=== PATIENT | male | born 1955 | race Caucasian/White ===

== ENCOUNTER 2017-07-31 12:37 | Inpatient (IN) | payer BC ==
[~2017-07-31] VITALS: Ht 180.3 cm; Wt 109.0 kg
[2017-07-31] MEDS ORDERED: LORazepam 2 mg/ml vial IV ONE (12:45)
[2017-07-31] MEDS ORDERED: ringers solution, lactated 1000ml IV soln IV ONE (12:45)
[2017-07-31 13:08] LABS: BASOPHILS % (AUTO) 0.2 % (0-1); EOSINOPHILS # (AUTO) 0.1 X10'3 (0-0.9); EOSINOPHILS % (AUTO) 1.3 % (0-6); HEMATOCRIT 43.3 % (42.0-52.0); LYMPHOCYTES # (AUTO) 0.7 X10'3 (1.1-4.8); LYMPHOCYTES % (AUTO) 13.8 % (21-51); MEAN CORPUSCULAR HEMOGLOBIN 33.9 PG (27.0-31.0); MEAN CORPUSCULAR HGB CONC 34.7 % (33.0-36.5); MEAN CORPUSCULAR VOLUME 97.7 FL (78-98); MEAN PLATELET VOLUME 7.3 FL (7.4-10.4); MONOCYTES # (AUTO) 0.7 X10'3 (0-0.9); MONOCYTES % (AUTO) 14.1 % (2-12); NEUTROPHILS # (AUTO) 3.3 X10'3 (1.8-7.7); NEUTROPHILS % (AUTO) 70.6 % (42-75); PLATELET COUNT 174 X10'3 (140-440); RED BLOOD COUNT 4.43 X10'6 (4.70-6.10); RED CELL DISTRIBUTION WIDTH 14.2 % (11.5-14.5); WHITE BLOOD COUNT 4.7 X10'3 (4.5-11.0)
[2017-07-31 13:21] LABS: ALANINE AMINOTRANSFERASE 56 U/L (12-78); ALBUMIN 3.4 G/DL (3.4-5.0); ALBUMIN/GLOBULIN RATIO 1.1 (1.1-1.5); ALKALINE PHOSPHATASE 82 IU/L (46-116); ANION GAP 17 (8-16); ASPARTATE AMINO TRANSFERASE 70 U/L (10-37); BILIRUBIN,TOTAL 0.9 MG/DL (0.1-1.0); BLOOD UREA NITROGEN 12 MG/DL (7-18); CALCIUM 8.6 MG/DL (8.5-10.1); CHLORIDE 103 MMOL/L (99-107); ETHANOL < 0.010 GM/DL (0.0-0.010); GLUCOSE 151 MG/DL (70-104); SODIUM 141 MMOL/L (135-145); TOTAL PROTEIN 6.6 G/DL (6.4-8.2); eGFR 62 ML/MIN
[2017-07-31 13:24] LABS: POTASSIUM 3.5 MMOL/L (3.5-5.1)
[2017-07-31] MEDS ORDERED: PRAV80TA PO (13:46)
[2017-07-31] MEDS ORDERED: ASPI-611 PO (13:46)
[2017-07-31] MEDS ORDERED: LISI40TA4 PO (13:48)
[2017-07-31] MEDS ORDERED: BUPR300T54 PO (13:48)
[2017-07-31 14:26] LABS: CLARITY,URINE CLEAR (Clear); COLOR,URINE YELLOW (Yellow); GLUCOSE, URINE NEGATIVE (Neg); KETONES,URINE TRACE mg/dl (Neg); LEUKOCYTE ESTERASE ,URINE NEGATIVE (Neg); NITRITES, URINE NEGATIVE (Neg); OCCULT BLOOD,URINE TRACE-INTACT (Neg); PH,URINE 7.5 (4.8-8.0); PROTEIN,URINE TRACE mg/dl (Neg); UA COLLECTION TYPE CLN CATCH MIDSTREAM; UROBILINOGEN,URINE 0.2 E.U/dL (0.2-1.0)
[2017-07-31 14:35] LABS: URINE AMPHETAMINE SCREEN NEGATIVE (Neg); URINE BARBITUATE SCREEN NEGATIVE (Neg); URINE BENZODIAZEPINES SCREEN NEGATIVE (Neg); URINE CANNABINOID SCREEN NEGATIVE (Neg); URINE COCAINE SCREEN NEGATIVE (Neg); URINE METHADONE SCREEN NEGATIVE (Neg); URINE OPIATE SCREEN NEGATIVE (Neg); URINE PHENCYCLIDINE SCREEN NEGATIVE (Neg)
[2017-07-31 14:50] LABS: BACTERIA,URINE NONE SEEN /HPF (Neg); RBC,URINE 0-2 /HPF (0-2); SQUAMOUS EPITHELIAL CELL,UR FEW /LPF (FEW); WBC,URINE 0-4 /HPF (0-4)
[2017-07-31 14:51] LABS: HYALINE CASTS 0-3 /LPF (NEGATIVE)
[2017-07-31] MEDS ORDERED: morphine 4 MG/ML inj SYRINge IV PRN ×2 (15:30)
[2017-07-31] MEDS ORDERED: dextrose 50%-water 50ml dispensing syringe IV PRN (15:30)
[2017-07-31] MEDS ORDERED: ondansetron/PF 4mg/2ml inj IV PRN (15:30)
[2017-07-31] MEDS ORDERED: potassium Cl 20 mEq SR tablet PO PRN ×2 (15:30)
[2017-07-31] MEDS ORDERED: acetaminophen 325mg tablet PO PRN ×2 (15:30)
[2017-07-31] MEDS ORDERED: magnesium 4gm in 100ml NS 100 ML IV PRN (15:30)
[2017-07-31] MEDS ORDERED: haloperidol lactate 5mg/ml inj IM PRN (15:30)
[2017-07-31] MEDS ORDERED: haloperidol 5mg tablet PO PRN (15:30)
[2017-07-31] MEDS ORDERED: HYDROcodone/acetaminophen 5mg/325mg tablet PO PRN (15:30)
[2017-07-31] MEDS ORDERED: magnesium hydroxide 30ml (MOM) UD suspension PO PRN (15:30)
[2017-07-31] MEDS ORDERED: HYDROcodone/acetaminophen 10/325mg tab PO PRN (15:30)
[2017-07-31] MEDS ORDERED: mag hydrox/Alum hydrox/simeth 30ml oral suspension PO PRN (15:30)
[2017-07-31] MEDS ORDERED: potassium Cl 40MEQ/NS 500ml 500 ML IV PRN ×2 (15:30)
[2017-07-31] MEDS ORDERED: magnesium Cl slow-release 64mg tablet PO PRN (15:30)
[2017-07-31] MEDS ORDERED: magnesium/D5W IVPB 50 ML IV PRN (15:30)
[2017-07-31] MEDS ORDERED: nicotine 14mg patch - 24hr TD SCH (15:30)
[2017-07-31] MEDS ORDERED: K and/or MAG REPLACEMENT MC SCH (15:30)
[2017-07-31] MEDS ORDERED: diphenhydrAMINE 50 mg/ml inj IV PRN (15:30)
[2017-07-31] MEDS ORDERED: thiamine 100mg/ml 2ml inj. IV ONE (15:30)
[2017-07-31] MEDS ORDERED: hydrALAZINE 20mg/ml inj. IV PRN (15:45)
[2017-07-31] MEDS ORDERED: pantoprazole 40 MG vial IV SCH (15:45)
[2017-07-31] MEDS ORDERED: cloNIDine 0.1 mg tablet PO ONE (15:45)
[2017-07-31] MEDS: dextrose 5%-normal saline 1,000 ML IV SCH ×2 (16:03→21:00)
[2017-07-31] MEDS: LORazepam 2 mg/ml vial IV PRN (16:11)
[2017-07-31 17:40] VITALS: BP 136/85
[2017-07-31] MEDS ORDERED: OMEP40CA37 PO (19:35)
[2017-07-31] MEDS ORDERED: temazepam 15mg capsule PO PRN (21:00)
[2017-08-01] VITALS: BP 136/75
[2017-08-01] MEDS: LORazepam 2 mg/ml vial IV PRN (00:56)
[2017-08-01] MEDS: dextrose 5%-normal saline 1,000 ML IV SCH (04:24)
[2017-08-01 05:06] LABS: BASOPHILS % (AUTO) 0.8 % (0-1); EOSINOPHILS # (AUTO) 0.1 X10'3 (0-0.9); EOSINOPHILS % (AUTO) 2.4 % (0-6); HEMATOCRIT 41.7 % (42.0-52.0); HEMOGLOBIN 14.4 g/dl (14.0-17.9); MEAN CORPUSCULAR HEMOGLOBIN 34.1 PG (27.0-31.0); MEAN CORPUSCULAR HGB CONC 34.6 % (33.0-36.5); MEAN CORPUSCULAR VOLUME 98.6 FL (78-98); MEAN PLATELET VOLUME 7.9 FL (7.4-10.4); MONOCYTES # (AUTO) 0.9 X10'3 (0-0.9); MONOCYTES % (AUTO) 17.6 % (2-12); NEUTROPHILS # (AUTO) 3.3 X10'3 (1.8-7.7); NEUTROPHILS % (AUTO) 61.2 % (42-75); PLATELET COUNT 166 X10'3 (140-440); RED BLOOD COUNT 4.23 X10'6 (4.70-6.10); RED CELL DISTRIBUTION WIDTH 14.3 % (11.5-14.5); WHITE BLOOD COUNT 5.3 X10'3 (4.5-11.0)
[2017-08-01 05:23] LABS: ALANINE AMINOTRANSFERASE 56 U/L (12-78); ALBUMIN 3.3 G/DL (3.4-5.0); ALKALINE PHOSPHATASE 84 IU/L (46-116); ANION GAP 11 (8-16); ASPARTATE AMINO TRANSFERASE 75 U/L (10-37); BILIRUBIN,TOTAL 1.1 MG/DL (0.1-1.0); BLOOD UREA NITROGEN 8 MG/DL (7-18); BUN/CREATININE RATIO 8.5 (5.4-32.0); CALCIUM 8.2 MG/DL (8.5-10.1); CHLORIDE 102 MMOL/L (99-107); CREATININE 0.94 MG/DL (0.60-1.10); GLUCOSE 110 MG/DL (70-104); MAGNESIUM 1.8 MG/DL (1.5-2.4); PHOSPHORUS 2.5 MG/DL (2.3-4.5); SODIUM 141 MMOL/L (135-145); TOTAL CARBON DIOXIDE 28.3 MMOL/L (24-32); TOTAL PROTEIN 6.6 G/DL (6.4-8.2); eGFR 82 ML/MIN
[2017-08-01 05:42] LABS: POTASSIUM 2.9 MMOL/L (3.5-5.1)
[2017-08-01 07:21] VITALS: BP 150/82
[2017-08-01] MEDS ORDERED: enoxaparin 40mg/0.4ml syringe SUBCUT SCH (08:00)
[2017-08-01] MEDS ORDERED: folic acid 1mg tablet PO SCH (08:00)
[2017-08-01] MEDS ORDERED: thiamine 100mg tablet PO SCH (08:00)
[2017-08-01] MEDS ORDERED: multivitamins, therapeutics tablet PO SCH (08:00)
[2017-08-01] MEDS ORDERED: potassium Cl 20 mEq SR tablet PO STA (08:12)
[2017-08-02] MEDS ORDERED: LORazepam 2 mg/ml vial IV PRN (15:30)
[2017-08-02] MEDS ORDERED: LORazepam 1 MG tablet PO PRN (15:30)
[2017-08-04] MEDS ORDERED: LORazepam 2 mg/ml vial IV PRN (15:30)
[2017-08-04] MEDS ORDERED: LORazepam 1 MG tablet PO PRN (15:30)
== END 2017-08-01 08:54 | disposition left against medical advice (07) | DRG 683 ==
LOC: ER 12:39 → ED HOLD 15:29 → SUR 3N 17:11
PROVIDERS: ADMIT Family Medicine; ATTEND Family Medicine
DX: N17.9 Acute kidney failure, unspecified (principal); F10.239 Alcohol dependence with withdrawal, unspecified; I10 Essential (primary) hypertension; E78.5 Hyperlipidemia, unspecified; Y90.8 Blood alcohol level of 240 mg/100 ml or more; E86.0 Dehydration; Z53.21 Procedure and treatment not carried out due to patient leaving prior to being seen by health care provider; K21.9 Gastro-esophageal reflux disease without esophagitis; Z87.891 Personal history of nicotine dependence; Z83.3 Family history of diabetes mellitus; Z82.49 Family history of ischemic heart disease and other diseases of the circulatory system; Z80.8 Family history of malignant neoplasm of other organs or systems
CPT/HCPCS: 36415; 70450; 71045; 74176; 80053; 80305; 80320; 81001; 82948; 83735; 84100; 85025; 87070; C9113; J2060; J3411; J7042; J7070; J7120

== ENCOUNTER 2017-09-24 16:25 | Emergency (ER) | payer BC ==
[~2017-09-24] VITALS: Ht 177.8 cm; Wt 200.0 kg
[~2017-09-24 16:25] MED LIST: ASPI-611 PO; BUPR300T54 PO; LISI40TA4 PO; PRAV80TA PO
[2017-09-24] MEDS ORDERED: LORazepam 2 mg/ml vial IV ONE ×2 (16:30→17:25)
[2017-09-24] MEDS ORDERED: normal saline 1000ML IV soln IVB ONE (16:30)
[2017-09-24 16:47] LABS: BASOPHILS # (AUTO) 0.1 X10'3 (0-0.2); BASOPHILS % (AUTO) 1.1 % (0-1); EOSINOPHILS # (AUTO) 0.1 X10'3 (0-0.9); HEMATOCRIT 47.1 % (42.0-52.0); HEMOGLOBIN 15.5 g/dl (14.0-17.9); LYMPHOCYTES # (AUTO) 1.5 X10'3 (1.1-4.8); LYMPHOCYTES % (AUTO) 25.5 % (21-51); MEAN CORPUSCULAR HEMOGLOBIN 32.7 PG (27.0-31.0); MEAN CORPUSCULAR HGB CONC 32.8 % (33.0-36.5); MEAN CORPUSCULAR VOLUME 99.7 FL (78-98); MEAN PLATELET VOLUME 7.8 FL (7.4-10.4); MONOCYTES # (AUTO) 0.8 X10'3 (0-0.9); MONOCYTES % (AUTO) 13.6 % (2-12); NEUTROPHILS # (AUTO) 3.2 X10'3 (1.8-7.7); NEUTROPHILS % (AUTO) 57.8 % (42-75); PLATELET COUNT 226 X10'3 (140-440); RED BLOOD COUNT 4.73 X10'6 (4.70-6.10); RED CELL DISTRIBUTION WIDTH 13.9 % (11.5-14.5); WHITE BLOOD COUNT 5.7 X10'3 (4.5-11.0)
[2017-09-24 17:03] LABS: ALANINE AMINOTRANSFERASE 45 U/L (12-78); ALBUMIN/GLOBULIN RATIO 1.2 (1.1-1.5); ALKALINE PHOSPHATASE 75 IU/L (46-116); ANION GAP 24 (8-16); ASPARTATE AMINO TRANSFERASE 55 U/L (10-37); BILIRUBIN,TOTAL 0.9 MG/DL (0.1-1.0); BLOOD UREA NITROGEN 9 MG/DL (7-18); BUN/CREATININE RATIO 7.3 (5.4-32.0); CHLORIDE 100 MMOL/L (99-107); CREATININE 1.23 MG/DL (0.60-1.10); ETHANOL 0.049 GM/DL (0.0-0.010); GLUCOSE 120 MG/DL (70-104); POTASSIUM 3.7 MMOL/L (3.5-5.1); SODIUM 139 MMOL/L (135-145); TOTAL CARBON DIOXIDE 15.4 MMOL/L (24-32); TOTAL PROTEIN 7.3 G/DL (6.4-8.2); eGFR 60 ML/MIN
[2017-09-24] MEDS ORDERED: ringers solution, lactated 1000ml IV soln IV ONE (17:25)
[2017-09-24] MEDS ORDERED: nicotine 14mg patch - 24hr TD ONE (19:15)
[2017-09-24] MEDS ORDERED: chlordiazePOXIDE 25mg capsule PO ONE (19:15)
[2017-09-24] MEDS ORDERED: GABA-532 PO (19:16)
[2017-09-24] MEDS ORDERED: gabapentin 400mg capsule PO ONE (19:30)
[2017-09-24 19:40] VITALS: BP 130/96
[2017-09-25] MEDS ORDERED: gabapentin 400mg capsule PO SCH
== END 2017-09-24 19:43 | disposition home or self-care (01) ==
LOC: ER 16:26
DX: F10.239 Alcohol dependence with withdrawal, unspecified (principal); R00.0 Tachycardia, unspecified; R56.9 Unspecified convulsions; Z79.82 Long term (current) use of aspirin; Z79.899 Other long term (current) drug therapy
CPT/HCPCS: 36415; 70450; 71045; 80053; 80320; 82140; 82948; 85025; 93005; 96361; 96374; 96376; 99285; J2060; J7030; J7120

== ENCOUNTER 2017-09-25 07:24 | Emergency (ER) | payer BC ==
[~2017-09-25] VITALS: Ht 177.8 cm; Wt 107.4 kg
[~2017-09-25 07:24] MED LIST changes: +GABA-532 PO
[2017-09-25] MEDS ORDERED: normal saline 1000ML IV soln IVB ONE (08:05)
[2017-09-25] MEDS ORDERED: pantoprazole 40 MG vial IV ONE (08:05)
[2017-09-25 08:34] LABS: BASOPHILS % (AUTO) 0.5 % (0-1); EOSINOPHILS % (AUTO) 0.1 % (0-6); HEMATOCRIT 43.5 % (42.0-52.0); HEMOGLOBIN 14.9 g/dl (14.0-17.9); LYMPHOCYTES # (AUTO) 0.9 X10'3 (1.1-4.8); LYMPHOCYTES % (AUTO) 9.3 % (21-51); MEAN CORPUSCULAR HEMOGLOBIN 33.9 PG (27.0-31.0); MEAN CORPUSCULAR HGB CONC 34.2 % (33.0-36.5); MEAN CORPUSCULAR VOLUME 99.1 FL (78-98); MEAN PLATELET VOLUME 8.1 FL (7.4-10.4); MONOCYTES # (AUTO) 1.3 X10'3 (0-0.9); NEUTROPHILS # (AUTO) 7.8 X10'3 (1.8-7.7); NEUTROPHILS % (AUTO) 77.1 % (42-75); PLATELET COUNT 218 X10'3 (140-440)
[2017-09-25 08:40] LABS: PROTHROMBIN TIME 10.5 SECONDS (9.0-12.0)
[2017-09-25 08:46] LABS: ALANINE AMINOTRANSFERASE 45 U/L (12-78); ALBUMIN 3.8 G/DL (3.4-5.0); ALBUMIN/GLOBULIN RATIO 1.1 (1.1-1.5); ALKALINE PHOSPHATASE 73 IU/L (46-116); ANION GAP 10 (8-16); ASPARTATE AMINO TRANSFERASE 79 U/L (10-37); BILIRUBIN,TOTAL 1.8 MG/DL (0.1-1.0); BLOOD UREA NITROGEN 17 MG/DL (7-18); CALCIUM 8.9 MG/DL (8.5-10.1); CHLORIDE 99 MMOL/L (99-107); GLUCOSE 118 MG/DL (70-104); POTASSIUM 3.7 MMOL/L (3.5-5.1); SODIUM 134 MMOL/L (135-145); TOTAL CARBON DIOXIDE 24.9 MMOL/L (24-32); TOTAL PROTEIN 7.3 G/DL (6.4-8.2); eGFR 76 ML/MIN
[2017-09-25 09:44] VITALS: BP 131/95
[2017-09-25] MEDS ORDERED: TETanus/Pertussis (Acell)/Diphther VAC/PF (Tdap-Adult) 0.5ml syringe IM ONE (09:50)
[2017-09-25] MEDS ORDERED: LIDOcaine 1.5% w/epinephrine 1:200,000 5ml ampul IJ ONE (09:50)
[2017-09-25] MEDS ORDERED: LORazepam 2 mg/ml vial IV ONE (10:55)
[2017-09-25] MEDS ORDERED: ondansetron/PF 4mg/2ml inj IV ONE (10:55)
[2017-09-25] MEDS ORDERED: LORazepam 2 mg/ml vial ONE (10:56)
== END 2017-09-25 11:20 | disposition home or self-care (01) ==
LOC: ER 07:24
DX: S01.512A Laceration without foreign body of oral cavity, initial encounter (principal); F10.239 Alcohol dependence with withdrawal, unspecified; Z87.891 Personal history of nicotine dependence; Z79.899 Other long term (current) drug therapy; Z79.82 Long term (current) use of aspirin; W22.8XXA Striking against or struck by other objects, initial encounter; Y93.89 Activity, other specified; Y92.89 Other specified places as the place of occurrence of the external cause; Y90.9 Presence of alcohol in blood, level not specified; Y99.9 Unspecified external cause status
CPT/HCPCS: 36415; 80053; 85025; 85610; 96361; 96374; 96375; 99284; A6449; C9113; J2060; J2405; J3490; J7030

== ENCOUNTER 2022-08-31 19:09 | Emergency (ER) | payer BC, OTHER ==
[~2022-08-31 19:09] MED LIST changes: +BUPR-319 PO; -BUPR300T54 PO; +LISI40TA13 PO; -LISI40TA4 PO
== END 2022-08-31 20:51 | disposition left against medical advice (07) ==
LOC: ER 19:10
DX: F10.129 Alcohol abuse with intoxication, unspecified (principal); Z53.21 Procedure and treatment not carried out due to patient leaving prior to being seen by health care provider; Y90.9 Presence of alcohol in blood, level not specified